=== PATIENT | male | born 1960 | race Caucasian/White ===

== ENCOUNTER 2022-08-19 04:23 | Day surgery (SDC) | payer OTHER ==
[2022-08-14 09:28] VITALS: BMI 30.1
[2022-08-19 08:35] VITALS: PULSE 61; RESP 18
[2022-08-19 11:42] VITALS: BP 112/59
[2022-08-20 06:49] VITALS: TEMP 97.2
== END 2022-08-19 11:35 | disposition home or self-care (01) ==
LOC: JASU-ENDO 04:23
PROVIDERS: ATTEND Internal Medicine Gastroenterology
PROC: 0DBL8ZX Excision of Transverse Colon, Via Natural or Artificial Opening Endoscopic, Diagnostic (ICD-10-PCS; principal; 2022-08-19 10:00)
DX: Z12.11 Encounter for screening for malignant neoplasm of colon (principal); K63.5 Polyp of colon; K57.30 Diverticulosis of large intestine without perforation or abscess without bleeding; K64.8 Other hemorrhoids; N40.0 Benign prostatic hyperplasia without lower urinary tract symptoms
CPT/HCPCS: 88305-TC